=== PATIENT | male | born 1950 | race Two or more races ===

== ENCOUNTER 2017-03-03 10:25 | Day surgery (SDC) | payer OTHER ==
[~2017-03-03 10:25] MED LIST: PROPOFOL 200 MG INJ; SUCCINYLCHOLINE CHLORIDE 100 MG/5 ML SYG IV; TRANEXAMIC ACID 1,000 MG in DEXTROSE 5% 100 ML IVPB
[2017-03-03] MEDS: GABAPENTIN 300 MG CAP PO (11:34)
[2017-03-03] MEDS: traMADol 50 MG TAB PO (11:34)
[2017-03-03] MEDS: DEXAMETHASONE 1 MG TAB PO (11:34)
[2017-03-03] MEDS ORDERED: MIDAZOLAM 1 MG/ML 2 ML INJ (13:28)
[2017-03-03] MEDS ORDERED: ROPIVACAINE 0.2% 20 ML VIAL (13:29)
[2017-03-03] MEDS ORDERED: METOCLOPRAMIDE 10 MG INJ (13:29)
[2017-03-03] MEDS ORDERED: ROCURONIUM 50 MG INJ (13:46)
[2017-03-03] MEDS ORDERED: EPHEDrine SULFATE 50 MG/5 ML SYG (13:46)
[2017-03-03] MEDS ORDERED: CEFAZOLIN 1 GM INJ (13:46)
[2017-03-03] MEDS ORDERED: ONDANSETRON 4 MG INJ (13:50)
[2017-03-03] MEDS ORDERED: ACETAMINOPHEN 1000MG/100ML IV 100 ML (13:50)
[2017-03-03] MEDS ORDERED: GLYCOPYRROLATE 0.4 MG INJ (14:28)
[2017-03-03] MEDS ORDERED: KETOROLAC 30 MG INJ (14:28)
[2017-03-03] MEDS ORDERED: NEOSTIGMINE 3 MG/3 ML SYRINGE (14:28)
[2017-03-03] MEDS ORDERED: HYDROmorphONE (0.2 MG/ML) 10ML SYG IV ×2 (15:00)
[2017-03-03] MEDS ORDERED: DIPHENHYDRAMINE 50 MG INJ IV (15:00)
[2017-03-03] MEDS ORDERED: MEPERIDINE 25 MG INJ IV (15:00)
[2017-03-03] MEDS ORDERED: ONDANSETRON 4 MG INJ IV (15:00)
[2017-03-03] MEDS: HYDROmorphONE (0.2 MG/ML) 10ML SYG IV (15:31)
[2017-03-03] MEDS: OXYCODONE/ACETAMINOPHEN (5/325) TAB PO (16:06)
== END 2017-03-03 16:38 | disposition home or self-care (01) ==
LOC: SDS 10:25
DX: M75.42 Impingement syndrome of left shoulder (principal); S46.212A Strain of muscle, fascia and tendon of other parts of biceps, left arm, initial encounter; S46.812A Strain of other muscles, fascia and tendons at shoulder and upper arm level, left arm, initial encounter; X58.XXXA Exposure to other specified factors, initial encounter; I10 Essential (primary) hypertension; E78.5 Hyperlipidemia, unspecified
CPT/HCPCS: 29824

== ENCOUNTER 2018-08-31 07:51 | Day surgery (SDC) | payer OTHER ==
[~2018-08-31 07:51] MED LIST changes: +BUPIVACAINE 0.5% (SDV) 30 ML, morphine SULFATE (PF) 8 MG, EPINEPHrine 0.3 MG, CLONIDINE... IRR; -PROPOFOL 200 MG INJ; -SUCCINYLCHOLINE CHLORIDE 100 MG/5 ML SYG IV; -TRANEXAMIC ACID 1,000 MG in DEXTROSE 5% 100 ML IVPB; +TRANEXAMIC ACID 1GM/100ML(PMX) 100 ML IVPB
[2018-08-31] MEDS: DEXAMETHASONE 2 MG TAB PO (11:18)
[2018-08-31] MEDS: VANCOMYCIN 1 GM (PMX) 250 ML IVPB (11:18)
[2018-08-31] MEDS: GABAPENTIN 300 MG CAP PO (11:18)
[2018-08-31] MEDS: LACTATED RINGER'S 1,000 ML IV (11:19)
[2018-08-31] MEDS ORDERED: ROCURONIUM 50 MG INJ (13:11)
[2018-08-31] MEDS ORDERED: PROPOFOL 20 ML (13:11)
[2018-08-31] MEDS ORDERED: ROPIVACAINE 0.5 % 30 ML VIAL (13:12)
[2018-08-31] MEDS ORDERED: MIDAZOLAM 1 MG/ML 2 ML INJ (13:12)
[2018-08-31] MEDS ORDERED: FENTAnyl 50 MCG/ML VIAL (13:12)
[2018-08-31] MEDS ORDERED: ONDANSETRON 4 MG INJ (13:56)
[2018-08-31] MEDS ORDERED: KETOROLAC 30 MG INJ (13:56)
[2018-08-31] MEDS ORDERED: METOCLOPRAMIDE 10 MG INJ (13:56)
[2018-08-31] MEDS ORDERED: DEXAMETHASONE 4 MG/ML 5 ML INJ (13:56)
[2018-08-31] MEDS ORDERED: PHENYLephrine (100 MCG/ML) 10ML SYG (14:24)
[2018-08-31] MEDS ORDERED: EPHEDrine 25 MG/5 ML SYG (14:24)
[2018-08-31] MEDS ORDERED: SUGAMMADEX SODIUM 200 MG/2 ML VIAL IV (14:49)
[2018-08-31] MEDS ORDERED: METOCLOPRAMIDE 10 MG INJ IV (15:30)
[2018-08-31] MEDS ORDERED: ONDANSETRON 4 MG INJ IV (15:30)
[2018-08-31] MEDS ORDERED: hydrALAzine 20 MG INJ IV (15:30)
[2018-08-31] MEDS ORDERED: MEPERIDINE 25 MG INJ IV (15:30)
[2018-08-31] MEDS ORDERED: LABETALOL HCL 20MG INJ IV (15:30)
[2018-08-31] MEDS ORDERED: HYDROmorphONE 1 MG/5 ML IV SYRINGE IV ×3 (15:30)
[2018-08-31] MEDS ORDERED: KETOROLAC 15 MG INJ IV (15:30)
[2018-08-31] MEDS ORDERED: OXYCODONE/ACETAMINOPHEN (5/325) TAB PO (15:30)
[2018-08-31] MEDS ORDERED: FENTAnyl 50 MCG/ML VIAL IV ×3 (15:30)
[2018-08-31] MEDS ORDERED: DIPHENHYDRAMINE 50 MG INJ IV (15:30)
[2018-08-31] MEDS ORDERED: EPHEDrine 25 MG/5 ML SYG IV (15:30)
== END 2018-08-31 16:35 | disposition home or self-care (01) ==
LOC: SDS 07:51
DX: S46.212D Strain of muscle, fascia and tendon of other parts of biceps, left arm, subsequent encounter (principal); X58.XXXD Exposure to other specified factors, subsequent encounter; M19.012 Primary osteoarthritis, left shoulder; S43.402D Unspecified sprain of left shoulder joint, subsequent encounter; I10 Essential (primary) hypertension; E78.5 Hyperlipidemia, unspecified; Z79.82 Long term (current) use of aspirin
CPT/HCPCS: 29823